=== PATIENT | female | born 2000 | race African-American/Black ===

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

== ENCOUNTER 2018-02-09 20:52 | Emergency (ER) | payer OTHER ==
[~2018-02-09] VITALS: Ht 170.2 cm; Wt 62.6 kg
[2018-02-09 21:48] LABS: APPEARANCE SL.HAZY ((CLEAR)); BILIRUBIN NEGATIVE; BLOOD NEGATIVE; COLOR YELLOW ((YELLOW)); GLUCOSE (STRIP) NEGATIVE; KETONES NEGATIVE; LEUKOCYTES NEGATIVE; NITRITE NEGATIVE; PROTEIN (STRIP) NEGATIVE; SPECIFIC GRAVITY 1.024 (1.000-1.030)
[2018-02-09 21:53] LABS: HEMATOCRIT 34.9 % (36.0-46.0); HEMOGLOBIN 11.7 G/DL (11.9-15.5); MCH 29.5 PG (29.0-34.0); MCHC 33.5 G/DL (30.0-36.0); MCV 88.1 FL (83-99); RBC DIS.WIDTH-CV 12.4 % (11.8-14.6); RBC DIS.WIDTH-SD 40.6 % (39-53); RED BLOOD COUNT 3.96 M/uL (3.80-5.20)
[2018-02-09 22:03] LABS: BACTERIA NONE SEEN /HPF; EPITHELIAL CELLS 2+ /HPF; MUCUS TRACE /LPF; RED BLOOD CELLS 0-5 /HPF (0-5); UCUL ADDED? NO; WHITE BLOOD CELLS 0-5 /HPF (0-5)
[2018-02-09 22:06] LABS: CHLORIDE 106 mEq/L (99-109); POTASSIUM 4.1 mEq/L (3.7-5.4); SODIUM 138 mEq/L (136-147)
[2018-02-09 22:08] LABS: GLUCOSE 89 mg/dL (70-99)
[2018-02-09 22:10] LABS: TOTAL BILIRUBIN 0.3 mg/dL (0.0-1.0)
[2018-02-09 22:12] LABS: ALKALINE PHOSPHATASE 68 IU/L (3-129); CREATININE 0.9 mg/dL (0.6-1.3); GFR ESTIMATE (CALCULATED) > 59 mL/min/
[2018-02-09 22:13] LABS: UREA NITROGEN (BUN) 16 mg/dL (9-23)
[2018-02-09 22:14] LABS: AST (GOT) 14 IU/L (2-34)
[2018-02-09 22:15] LABS: ALT (GPT) 7 IU/L (3-49)
[2018-02-09 22:20] LABS: QUANTITATIVE HCG < 4.0 MIU/ML
[2018-02-09 22:29] LABS: SOURCE SWAB
[2018-02-09 22:42] LABS: HEMATOLOGY COMMENT 1 SN; PLAT.SUFFICIENCY ADEQUATE; PLATELET COUNT 266 K/uL (156-360)
[2018-02-10 00:09] LABS: CANDIDA DNA PROBE NEGATIVE; GARDNERELLA DNA PROBE NEGATIVE; TRICHOMONAS DNA PROBE NEGATIVE
[2018-02-10 00:47] VITALS: BP 126/51
== END 2018-02-10 00:49 | disposition home or self-care (01) ==
LOC: EME 20:52 → EXP 20:52
PROVIDERS: Physician Assistant
DX: R10.2 Pelvic and perineal pain (principal); N89.8 Other specified noninflammatory disorders of vagina; J45.909 Unspecified asthma, uncomplicated; F17.200 Nicotine dependence, unspecified, uncomplicated
CPT/HCPCS: 80053; 81003; 84702; 85027; 87210; 87480; 87491; 87510; 87591; 87660; 99281; 99285; J0696